=== PATIENT | female | born 1995 | race Two or more races ===

== ENCOUNTER 2017-02-17 05:11 | Emergency (ER) | payer BC ==
[~2017-02-17] VITALS: Ht 160 cm; Wt 64.4 kg
[2017-02-17] MEDS ORDERED: ZOFRAN ODT4 MG PO (05:41)
[2017-02-17 05:48] LABS: EOSINOPHIL (%) 0.1 % (0-5); HEMATOCRIT 41.2 % (36.0-46.0); IMMATURE GRANULOCYTE (%) 0.3 % (0.0-0.7); INSTRUMENT ABS NEUTROPHIL CT 9.3 K/uL; LYMPHOCYTE COUNT 0.5 K/uL (1.0-2.8); MCH 26.1 PG (29.0-34.0); MCHC 32.5 G/DL (30.0-36.0); MCV 80.3 FL (83-99); MEAN PLAT.VOLUME 11.2 uM^3 (9.5-12.4); MONOCYTE (%) 6.2 % (3-12); MONOCYTE COUNT 0.7 K/uL (0-0.8); NEUTROPHIL (%) 88.5 % (45-76); NEUTROPHIL COUNT 9.3 K/uL (1.8-6.4); PLATELET COUNT 262 K/uL (156-360); RBC DIS.WIDTH-CV 14.7 % (11.8-14.6); RBC DIS.WIDTH-SD 43.1 % (39-53); RED BLOOD COUNT 5.13 M/uL (3.80-5.20); WHITE BLOOD COUNT 10.5 K/uL (4.1-10.2)
[2017-02-17 05:57] LABS: CHLORIDE 102 mEq/L (99-109); POTASSIUM 3.4 mEq/L (3.7-5.4); SODIUM 135 mEq/L (136-147)
[2017-02-17 05:59] LABS: GLUCOSE 135 mg/dL (70-99)
[2017-02-17 06:01] LABS: ANION GAP 11 MEQ/L (2-14); TOTAL BILIRUBIN 1.2 mg/dL (0.0-1.0)
[2017-02-17 06:03] LABS: ALKALINE PHOSPHATASE 80 IU/L (3-129); GFR ESTIMATE (CALCULATED) > 59 mL/min/
[2017-02-17 06:04] LABS: UREA NITROGEN (BUN) 14 mg/dL (9-23)
[2017-02-17 06:07] LABS: LIPASE 32 U/L (1.0-51.0)
[2017-02-17 07:03] LABS: ADD MIUA? NO; BILIRUBIN NEGATIVE; BLOOD NEGATIVE; COLOR YELLOW ((YELLOW)); GLUCOSE (STRIP) NEGATIVE; INTERNAL CONTROL VALID? YES; KETONES 5; LEUKOCYTES NEGATIVE; NITRITE NEGATIVE; PROTEIN (STRIP) NEGATIVE; SPECIFIC GRAVITY 1.012 (1.000-1.030); UCUL ADDED? NO; UROBILINOGEN 0.2 MG/DL (0.2-1.0)
[2017-02-17 07:29] VITALS: BP 100/72
== END 2017-02-17 07:32 | disposition home or self-care (01) ==
LOC: EME 05:11
PROVIDERS: Emergency Medicine; Physician Assistant
DX: K52.9 Noninfective gastroenteritis and colitis, unspecified (principal)
CPT/HCPCS: 80053; 81003; 83690; 84703; 85025; J2405; J7030